=== PATIENT | female | born 1975 | race African-American/Black ===

== ENCOUNTER 2019-05-17 19:21 | Emergency (ER) | payer BC ==
[~2019-05-17] VITALS: Ht 160 cm; Wt 79.0 kg
[2019-05-17] MEDS ORDERED: SODIUM CHLORIDE 0.9% 1,000 ML IV ONE (19:51)
[2019-05-17] MEDS ORDERED: ONDANSETRON HCL 4MG/2ML INJ IV STA (19:51)
[2019-05-17] MEDS ORDERED: FAMOTIDINE 20MG/2ML VIAL IV ONE (20:00)
[2019-05-17] MEDS ORDERED: KETOROLAC 30MG/ML VIAL IV ONE (20:00)
[2019-05-17 20:08] LABS: BASOPHILS % 0.9 % (0.0-2.0); EOSINOPHILS % 0.8 % (0.0-5.0); HEMATOCRIT. 29.8 % (36.0-48.0); HEMOGLOBIN. 9.6 g/dL (12.0-16.0); LYMPHOCYTES % 37.3 % (20.0-50.0); MEAN CORPUSCULAR HEMOGLOBIN 25.1 pg (28.0-32.0); MEAN CORPUSCULAR VOLUME 78.2 fL (81.0-99.0); MEAN PLATELET VOLUME 7.8 fl (7.4-10.4); PLATELET 280 x1000/uL (130-400); RED BLOOD CELL COUNT 3.82 mill/uL (4.2-5.4); RED CELL DISTRIBUTION WIDTH 17.2 % (11.6-14.6)
[2019-05-17 20:15] LABS: CHLORIDE 110 mEq/L (98-107)
[2019-05-17 20:24] LABS: HCG SCREEN NEGATIVE
[2019-05-17] MEDS ORDERED: ASPIRIN 81MG TABLET PO ONE (20:30)
[2019-05-17 20:37] LABS: CLARITY URINE CLEAR (CLEAR); COLOR URINE YELLOW (YELLOW); KETONES URINE NEGATIVE (NEGATIVE); LEUKOCYTE ESTERASE URINE TRACE (NEGATIVE); NITRITE URINE NEGATIVE (NEGATIVE); OCCULT BLOOD URINE TRACE (NEGATIVE); PH URINE 8.5 (4.5-8.0); PROTEIN URINE NEGATIVE (NEGATIVE); SPECIFIC GRAVITY URINE 1.009 (1.005-1.030); UROBILINOGEN URINE 0.2 E.U./dL (0.2-1.0)
[2019-05-18] MEDS ORDERED: ONDANSETRON HCL 4MG/2ML INJ IV ONE (01:00)
[2019-05-18] MEDS ORDERED: MORPHINE SULFATE 4 MG/ML CPJ (NOT FOR IM USE) IV ONE (01:00)
[2019-05-18] MEDS ORDERED: TRAMADOL 50MG TABLET PO ONE (01:45)
[2019-05-18 02:21] VITALS: BP 121/74
[2019-05-18] MEDS ORDERED: IOHEXOL-350 100 ML BOTTLE ONE (02:44)
== END 2019-05-18 02:22 | disposition home or self-care (01) ==
LOC: ER 19:21
DX: R07.89 Other chest pain (principal); R10.30 Lower abdominal pain, unspecified
CPT/HCPCS: 36415; 71045; 71275; 80053; 81003; 81025; 83690; 83880; 84484; 84703; 85025; 93005; 96374; 96375; 99284; J1885; J3490; J7030; Q9967; Z7610; J2405